=== PATIENT | male | born 1975 | race Caucasian/White ===

== ENCOUNTER → 2022-08-19 12:46 | Outpatient (CLI) | payer OTHER, MEDICAID, SELFPAY ==
--- NOTE | 2022-08-19 | DI.MRI.S_ITS ---
PROCEDURE: MR LUMBAR SPINE WO CON INDICATIONS: low back pain TECHNIQUE: Noncontrast sagittal T1 spin echo and T2 fast echo, sagittal STIR, and T2 fast spin echo through the lumbar spine. In cases with scoliosis, additional coronal T2 fast spin echo may be performed. COMPARISON: [facility], CT, CT CHEST ABDOMEN PELVIS WITH CONTRAST, 01/12/2020, 9:25. [facility], MR, MR LUMBAR SPINE WITH/WITHOUT CONTRAST, 04/02/2020, 10:30. [facility], CR, XR LUMBAR SPINE WITH FLEXION EXTENSION 5 VIEWS, 08/08/2022, 10:28. FINDINGS: Image quality: Excellent. Alignment and Curvature: There is normal bony alignment. Bone Marrow: Marrow is of normal overall signal. No acute vertebral body compression fractures. Spinal Cord: Conus medullaris terminates at the L1 level. Visualized cord demonstrates normal signal and size. Paraspinous Soft Tissues: No paravertebral masses. Susceptibility artifact from right posterolateral pelvis clips can be seen. T12-L1: Normal appearance. L1-L2: No significant abnormality is seen. L2-L3: Mild loss of disc height is seen. Loss of disc signal is seen. Mild to moderate disc bulge is seen, which is eccentric to the right, with a right foraminal disc protrusion, as on series 515, and on series three image 6. Moderate bilateral neural foraminal narrowing is seen. Moderate central canal narrowing is seen. There is mild progression compared to 2019. L3-L4: The disc height and disk signal are well-preserved. Mild to moderate disc bulge is seen, which is eccentric to the right. Moderate bilateral neural foraminal narrowing is seen. Minimal central canal narrowing is seen. The degree of central canal narrowing appears improved compared to the prior. L4-L5: Mild loss of disc height is seen. Loss of disc signal is seen. Moderate disc bulge is seen, which is eccentric to the left. There is a superimposed central disc protrusion. Mild to moderate facet hypertrophy is seen. There is moderate to severe bilateral neural foraminal narrowing seen, with an associated a degree of compression seen upon the exiting nerve roots. Moderate central canal narrowing is seen. No significant change from the prior. L5-S1: At least moderate loss of disc height and disc signal can be seen. Mild to moderate disc bulge is seen, with a mild central disc protrusion. Mild facet joint hypertrophy is seen. There is at least moderate left-sided and moderate right-sided neural foraminal narrowing. Mild central canal narrowing is seen. The degree of endplate edema seen on the prior study has improved. IMPRESSION: Multiple levels of lumbar spine degenerative change can be seen. There is been improvement compared to 2019, with improved central canal narrowing at L3-L4 and decreased edema seen involving the L5-S1 endplates. Dictated by: Alexander Hannah M.D. on 08/19/2022 at 14:46 Approved by: Alexander Hannah M.D. on 08/19/2022 at 14:51
== END ==
PROVIDERS: PCP Family Medicine; Referring Provider Physician Assistant Surgical; Visit Provider Physician Assistant Surgical
DX: C62.91 Malignant neoplasm of right testis, unspecified whether descended or undescended (principal); M47.816 Spondylosis without myelopathy or radiculopathy, lumbar region; R10.33 Periumbilical pain; M47.817 Spondylosis without myelopathy or radiculopathy, lumbosacral region
CPT/HCPCS: 72148